=== PATIENT | male | born 1970 | race American Indian/Alaskan Native ===

== ENCOUNTER 2018-06-18 21:22 | Inpatient (IN) | payer MEDICAID, OTHER ==
[2018-06-18 22:10] LABS: BASO % 0.9 % (0.0-2.0); EOS # 0.1 K/uL (0.0-0.7); EOS % 1.5 % (0.0-4.0); HEMOGLOBIN 12.8 g/dL (12.0-18.0); LYMPH # 2.1 K/uL (1.0-4.3); LYMPH % 39.8 % (20.0-40.0); MEAN CELL VOLUME 94.1 fL (80.0-94.0); MEAN CORPUSCULAR HEMOGLOBIN 31.3 pg (27.0-31.0); MEAN CORPUSCULAR HGB CONC 33.3 g/dL (33.0-37.0); MEAN PLATELET VOLUME 7.3 fL (7.2-11.7); MONO # 0.7 K/uL (0.0-0.8); MONO % 12.4 % (0.0-10.0); NEUT # 2.4 K/uL (1.8-7.0); NEUT % 45.4 % (50.0-75.0); NRBC % 0.1 % (0.0-2.0); RBC 4.07 Mil/uL (4.40-5.90); RED CELL DISTRIBUTION WIDTH 16.4 % (11.5-14.5); WHITE BLOOD COUNT 5.3 K/uL (4.8-10.8)
[2018-06-18 22:22] LABS: ALB/GLOB RATIO 1.6 (1.0-2.1); ALBUMIN 4.5 g/dL (3.5-5.0); ALT/SGPT 21 U/L (21-72); AST/SGOT 46 U/L (17-59); BLOOD UREA NITROGEN 15 mg/dL (9-20); CALCIUM 8.8 mg/dl (8.6-10.4); GFR NON-AFRICAN AMERICAN > 60
[2018-06-18 22:40] LABS: SQUAMOUS EPITHIAL 1 /hpf (0-5); URINE AMORPHOUS SEDIMENT RARE /ul (<OCC); URINE BILIRUBIN NEGATIVE (NEGATIVE); URINE BLOOD NEGATIVE (NEGATIVE); URINE CLARITY Hazy (Clear); URINE COLOR Yellow (YELLOW); URINE GLUCOSE (UA) NORMAL (Normal); URINE HYALINE CAST 0-2 /lpf (0-2); URINE LEUKOCYTE ESTERASE NEG Leu/uL (Negative); URINE PROTEIN 2+ mg/dL (NEGATIVE)
[2018-06-18 22:54] LABS: BARBITURATES, UR NEGATIVE (NEGATIVE); BENZODIAZEPINES, UR NEGATIVE (NEGATIVE); OPIATES, UR NEGATIVE (NEGATIVE); PHENCYCLIDINE, UR NEGATIVE (NEGATIVE)
--- NOTE | 2018-06-18 22:59 | C.PDOC ---
History Of Present Illness 47 y/o male is brought in by ambulance and [facility] for alcohol abuse and threatening behavior, seeking detox from alcohol. Patient comes in with handcuffs behind his back. Admits he drank alcohol today, was drinking a pint of vodka when police got to his house. <Mario Burns - Last Filed: 06/19/18 06:47> History Per: Patient, EMS History/Exam Limitations: no limitations Onset/Duration Of Symptoms: Days Current Symptoms Are (Timing): Still Present <Mario Burns - Last Filed: 06/19/18 06:47> <Shaquille Davis V - Last Filed: 06/19/18 09:22> Chief Complaint (Nursing): Psychiatric Evaluation Past Medical History Reviewed: Historical Data, Nursing Documentation, Vital Signs Vital Signs: Last Vital Signs Temp 98.3 F 06/18/18 21:32 Pulse 108 H 06/18/18 21:32 Resp 20 06/18/18 21:32 BP 152/79 H 06/18/18 21:32 Pulse Ox 96 06/18/18 21:32 - Medical History PMH: Denies: Chronic Kidney Disease - [facility] Procedures ALCOHOL DETOXIFICATION (08/09/12) OTHER GROUP THERAPY (08/09/12) Family History: States: No Known Family Hx - Social History Hx Alcohol Use: Yes Hx Substance Use: No - Immunization History Hx Tetanus Toxoid Vaccination: No Hx Influenza Vaccination: No Hx Pneumococcal Vaccination: No <Mario Burns - Last Filed: 06/19/18 06:47> Vital Signs: Last Vital Signs Temp 98.1 F 06/19/18 07:26 Pulse 70 06/19/18 07:26 Resp 18 06/19/18 07:26 BP 120/70 06/19/18 07:26 Pulse Ox 100 06/19/18 07:26 - [facility] Procedures ALCOHOL DETOXIFICATION (08/09/12) OTHER GROUP THERAPY (08/09/12) <Shaquille Davis V - Last Filed: 06/19/18 09:22> Review Of Systems Except As Marked, All Systems Reviewed And Found Negative. Constitutional: Negative for: Fever Gastrointestinal: Negative for: Vomiting Psych: Positive for: Other (alcohol abuse) <Mario Burns - Last Filed: 06/19/18 06:47> Physical Exam - Physical Exam Appears: Non-toxic, No Acute Distress, Other (Bizarre, argumentative, confrontational) Skin: Warm Head: Atraumatic Eye(s): bilateral: Normal Inspection Oral Mucosa: Moist, Other (alcohol on breath) Neck: Supple Cardiovascular: Rhythm Regular, No Murmur Respiratory: Normal Breath Sounds, No Rales, No Rhonchi, No Wheezing Gastrointestinal/Abdominal: Soft, No Tenderness Extremity: Bilateral: Atraumatic Neurological/Psych: Oriented x3, Normal Speech <Mario Burns E - Last Filed: 06/19/18 06:47> ED Course And Treatment - Laboratory Results Result Diagrams: 06/18/18 22:06 06/18/18 22:06 Lab Results: Total Bilirubin 0.4 mg/dL (0.2-1.3) 06/18/18 22:06 AST 46 U/L (17-59) 06/18/18 22:06 ALT 21 U/L (21-72) D 06/18/18 22:06 Alkaline Phosphatase 91 U/L (38-126) 06/18/18 22:06 Total Protein 7.3 g/dL (6.3-8.3) 06/18/18 22:06 Albumin 4.5 g/dL (3.5-5.0) 06/18/18 22:06 Globulin 2.8 gm/dL (2.2-3.9) 06/18/18 22:06 Albumin/Globulin Ratio 1.6 (1.0-2.1) 06/18/18 22:06 Urine Color Yellow (YELLOW) 06/18/18 22:35 Urine Clarity Hazy (Clear) 06/18/18 22:35 Urine pH 7.0 (5.0-8.0) 06/18/18 22:35 Ur Specific [place] 1.016 (1.003-1.030) 06/18/18 22:35 Urine Protein 2+ mg/dL (NEGATIVE) H 06/18/18 22:35 Urine Glucose (UA) Normal mg/dL (Normal) 06/18/18 22:35 Urine Ketones Negative mg/dL (NEGATIVE) 06/18/18 22:35 Urine Blood Negative (NEGATIVE) 06/18/18 22:35 Urine Nitrate Negative (NEGATIVE) 06/18/18 22:35 Urine Bilirubin Negative (NEGATIVE) 06/18/18 22:35 Urine Urobilinogen 4.0 mg/dL (0.2-1.0) 06/18/18 22:35 Ur Leukocyte Esterase Neg Abi/uL (Negative) 06/18/18 22:35 Urine WBC (Auto) 1 /hpf (0-5) 06/18/18 22:35 Urine RBC (Auto) < 1 /hpf (0-3) 06/18/18 22:35 Ur Squamous Epith Cells 1 /hpf (0-5) 06/18/18 22:35 Amorphous Sediment Rare /ul (<OCC) H 06/18/18 22:35 Hyaline Casts 0-2 /lpf (0-2) 06/18/18 22:35 Lab Interpretation: Abnormal (etoh 391 @ 2200) O2 Sat by Pulse Oximetry: 96 (RA) Pulse Ox Interpretation: Normal Reevaluation Time: 06:47 Reassessment Condition: Improved <Mario Burns - Last Filed: 06/19/18 06:47> - Laboratory Results Result Diagrams: 06/18/18 22:06 06/18/18 22:06 Lab Results: Total Bilirubin 0.4 mg/dL (0.2-1.3) 06/18/18 22:06 AST 46 U/L (17-59) 06/18/18 22:06 ALT 21 U/L (21-72) D 06/18/18 22:06 Alkaline Phosphatase 91 U/L (38-126) 06/18/18 22:06 Total Protein 7.3 g/dL (6.3-8.3) 06/18/18 22:06 Albumin 4.5 g/dL (3.5-5.0) 06/18/18 22:06 Globulin 2.8 gm/dL (2.2-3.9) 06/18/18 22:06 Albumin/Globulin Ratio 1.6 (1.0-2.1) 06/18/18 22:06 Urine Color Yellow (YELLOW) 06/18/18 22:35 Urine Clarity Hazy (Clear) 06/18/18 22:35 Urine pH 7.0 (5.0-8.0) 06/18/18 22:35 Ur Specific [place] 1.016 (1.003-1.030) 06/18/18 22:35 Urine Protein 2+ mg/dL (NEGATIVE) H 06/18/18 22:35 Urine Glucose (UA) Normal mg/dL (Normal) 06/18/18 22:35 Urine Ketones Negative mg/dL (NEGATIVE) 06/18/18 22:35 Urine Blood Negative (NEGATIVE) 06/18/18 22:35 Urine Nitrate Negative (NEGATIVE) 06/18/18 22:35 Urine Bilirubin Negative (NEGATIVE) 06/18/18 22:35 Urine Urobilinogen 4.0 mg/dL (0.2-1.0) 06/18/18 22:35 Ur Leukocyte Esterase Neg Abi/uL (Negative) 06/18/18 22:35 Urine WBC (Auto) 1 /hpf (0-5) 06/18/18 22:35 Urine RBC (Auto) < 1 /hpf (0-3) 06/18/18 22:35 Ur Squamous Epith Cells 1 /hpf (0-5) 06/18/18 22:35 Amorphous Sediment Rare /ul (<OCC) H 06/18/18 22:35 Hyaline Casts 0-2 /lpf (0-2) 06/18/18 22:35 <Shaquille Davis V - Last Filed: 06/19/18 09:22> Medical Decision Making Medical Decision Making: Plan: --Labs --UA alcohol abuse pending Detox when sober Mecially cleared for Detox <Mario Burns - Last Filed: 06/19/18 06:47> Disposition - Disposition Disposition Time: 01:00 <Mario Burns - Last Filed: 06/19/18 06:47> Discussed With : Georgia Proctor Doctor Will See Patient In The: Hospital - Disposition Disposition Time: 09:21 <Shaquille Davis V - Last Filed: 06/19/18 09:22> - Disposition Disposition: HOSPITALIZED Condition: STABLE Forms: [facility] ([place]) - Clinical Impression Clinical Impression: Alcohol abuse, Moderate major depression, single episode - Scribe Statement The provider has reviewed the documentation as recorded by the Liza Schulte Provider Attestation: All medical record entries made by the Scribe were at my direction and personally dictated by me. I have reviewed the chart and agree that the record accurately reflects my personal performance of the history, physical exam, medical decision making, and the department course for this patient. I have also personally directed, reviewed, and agree with the discharge instructions and disposition. <Mario Burns E - Last Filed: 06/19/18 06:47> Physician Patient Turnover Patient Signed Over To: Shaquille Davis V <Mario Burns - Last Filed: 06/19/18 06:47>
--- NOTE | 2018-06-19 11:03 | PCM.PSYCH ---
Initial Psychiatric Evaluation - Initial Psychiatric Evaluation Type of Admission: Voluntary Legal Status: Capacity Chief Complaint (in patient's own words): "Alcohol" History of Present Illness and Precipitating Events: The patient is seen, chart reviewed and case discussed. 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 The patient admits to drinking 2 and a half liters of liquor every day. He says he relapsed 4 years ago, but he started drinking 10 years ago. This is a second detox and he has never been to rehab. He had DTs recently but no seizures. He states he became homeless and jailed because of alcohol, and lost relationships. He had increasing Chepe in the emergency room and started with medications. It was around 10. Past psychiatric: Depression but no treatment reported. Currently he feels down but not suicidal now. He claims he was killing himself with alcohol outside. Medical history: Denies major problems Family psych history: Denies Past Psychiatric History - Past Psychiatric History Pertinent Medical Hx (Current Medical&Sleep Prob, Allergies): Allergies Allergy/AdvReac Type Severity Reaction Status Date / Time No Known Allergies Allergy Unverified 08/09/12 22:31 No Known Home Med 06/18/18 Review of Systems - Psychiatric Psychiatric: Abnormal Sleep Pattern, Anhedonia, Anxiety, Change in Appetite, Depression, Difficulty Concentrating. absent: Hallucinations, Homicidal Ideation, Paranoia, Suicidal Ideation Mental Status Examination - Personal Presentation Personal Presentation: Looks older than stated age - Affect Affect: Constricted - Motor Activity Motor Activity: Calm - Reliability in Providing Information Reliability in Providing Information: Good - Speech Speech: Organized - Mood Mood: Depressed, Anxious - Formal Thought Process Formal Thought Process: No Impairment - Cognitive Functions Orientation: Person, Place, Situation, Time Sensorium: Alert Attention/Concentration: Attentive Estimate of Intelligence: Average Judgement: Intact, as evidence by: Insight regarding need for hospitalization Memory: Recent intact, as evidence by: Ability to recall events of the day, Remote intact, as evidenced by: Abilit to recall sig. life events - Risk Risk: Withdrawal, Diminished functioning - Strength & Assets Inventory Strength & Assets Inventory: Cooperative - Limitations Limitations: Other DSM 5 DX - DSM 5 DSM 5 Diagnosis: Alcohol withdrawal Alcohol use d/o - severe Depressive d/o - unspecified - Recommended/Plan of Treatment Treatment Recommendations and Plan of Treatment: Taper with librium Gabapentin for augmentation if needed Monitor depressive sxs As needed medications All risks, benefits and alternatives of the meds discussed, and the pt agreed and understood. Attend groups and activities Supportive therapy and psychoeducation [place] for abstinence CBT for relapse prevention Encourage MAT Refer to rehab or IOP, and self-help groups Teach healthy lifestyle methods, i.e. diet, exercise, meditation Smoking cessation with [place] Nicotine patch if needed 34 min Projected ELOS: 4-5 days Prognosis: good w treatment - Smoking Cessation Smoking Cessation Initiated: Yes
[2018-06-19] MEDS: Multiple Vitamins Tab PO SCH (12:10)
--- NOTE | 2018-06-19 13:38 | PCM.BM ---
<AlexeyLauren cuellar Murphy - Last Filed: 06/19/18 13:36> Treatment Plan Problems - Problems identified on initial assessmt Abnormal vitals Date Initiated: 06/19/18 Time Initiated: 11:00 Assessment reference: NA Status: Active Knowledge Deficit related to Alcohol Date Initiated: 06/19/18 Time Initiated: 11:00 Assessment reference: NA Status: Active Defensive Coping Date Initiated: 06/19/18 Time Initiated: 11:00 Assessment reference: NA Status: Active Treatment assets and liabiliti Patient Assests: ADL independent Patient Liabilities: substance abuse - Milieu Protocol Maintain good personal hygiene: daily Encourage regular showers, daily Remind patient to perform daily oral care, daily Assist patient to perform ADL's Maintain personal safety: every shift Educate patient to report safety concerns to staff, every shift Monitor environment for contraband/sharps Medication safety: Monitor for expected outcome, potential side effects: every shift, Assess barriers to learning: every shift, Assess readiness for medication education: every shift <Georgia Proctor - Last Filed: 06/20/18 13:25> - Diagnosis (1) Alcohol abuse Status: Acute Interventions: 06/20/18 13:25 * Assess 7x/week regarding severity of withdrawal * Educate regarding risks, benefits, side effects and alternatives of medications * Use Motivational Interviewing for abstinence * Use CBT for relapse prevention * Medication management for withdrawal symptoms * Encourage medication assisted treatment * (2) Moderate major depression, single episode Status: Acute Interventions: 06/20/18 13:25 * Assess/adjust medications daily and /or as needed * See patient on an individual basis 7x/week to assess symptoms of depression * Monitor for side effects & effectiveness of medications * <Radha Pizarro - Last Filed: 06/22/18 11:33> Family Contact Family involvement: Famliy/SO not involved - Goals for Treatment Patient goals for treatment: Complete detox and transition to an [facility] in [place]. Discharge/Continuing Care - Education Needs Education Needs: Patient Medication, Patient Diagnosis/Disease Process, Patient Coping Skills, Patient Anger Management skills, Patient Placement options, Patient Community resources - Discharge Discharge Criteria: No longer exhibiting s/s of withdrawal, Reduction of target symptoms Discharge to:: With Family - Treatment Team Participation Patient/Family/SO Statement: 06/22/18 11:32 "I'm gonna move to [place] where my family is. I already have a bus ticket. I'll go to a program there..." Discussed with Family/SO: No Was Patient/Family/SO present at Treatment Team Meeting: Yes
[2018-06-20] MEDS: Multiple Vitamins Tab PO SCH (09:57)
--- NOTE | 2018-06-20 12:38 | PCM.PYCHPN ---
Psychiatric Progress Note - Psychiatric Progress Note Patient seen today, length of contact: 16 min Patient Chief Complaint: "Better" Problems Identified/Issues Discussed: The pt is seen, chart reviewed, case discussed with staff. The pt is compliant with medications and reports no side-effects. Symptoms are improving but needs more time to stabilize. Pt attends groups and activities. Support given, psycho-education provided. After care discussed. He says he will go to [place] directly when he leaves. Medication Change: Yes (detox changes daily) Medical Record Reviewed: Yes Mental Status Examination - Cognitive Function Orientation: Person, Place, Situation, Time Memory: Intact Attention: WNL Concentration: Poor Association: WNL Fund of Knowledge: WNL - Mood Mood: Depressed, Anxious - Affect Affect: Constricted - Speech Speech: Appropriate - Formal Thought Process Formal Thought Process: No Impairment - Suicidal Ideation Suicidal Ideation: No - Homicidal Ideation Homicidal Ideation: No Goal/Treatment Plan - Goal/Treatment Plan Need for Continued Stay: Discharge may exacerbated symptoms, Severe functional impairment Progress Toward Problem(s) and Goals/Treatment Plan: Taper with librium Gabapentin for augmentation if needed Monitor depressive sxs As needed medications All risks, benefits and alternatives of the meds discussed, and the pt agreed and understood. Attend groups and activities Supportive therapy and psychoeducation [place] for abstinence CBT for relapse prevention Encourage MAT Refer to rehab or IOP, and self-help groups Teach healthy lifestyle methods, i.e. diet, exercise, meditation Smoking cessation with [place] Nicotine patch if needed
[2018-06-21] MEDS: Multiple Vitamins Tab PO SCH (09:52)
--- NOTE | 2018-06-21 13:23 | PCM.PYCHPN ---
Psychiatric Progress Note - Psychiatric Progress Note Patient seen today, length of contact: 17 min Patient Chief Complaint: "OK today" Problems Identified/Issues Discussed: The pt is seen, chart reviewed, case discussed with staff. Support and psychoeducation given, CBT and [place] used briefly Pt is improving slowly and needs more time, still has ongoing symptoms. No SEs from medications, risks discussed. After care discussed Medication Change: Yes (detox changes daily) Medical Record Reviewed: Yes Mental Status Examination - Cognitive Function Orientation: Person, Place, Situation, Time Memory: Intact Attention: WNL Concentration: Poor Association: WNL Fund of Knowledge: WNL - Mood Mood: Depressed, Anxious - Affect Affect: Constricted - Speech Speech: Appropriate - Formal Thought Process Formal Thought Process: No Impairment - Suicidal Ideation Suicidal Ideation: No - Homicidal Ideation Homicidal Ideation: No Goal/Treatment Plan - Goal/Treatment Plan Need for Continued Stay: Discharge may exacerbated symptoms, Severe functional impairment Progress Toward Problem(s) and Goals/Treatment Plan: Taper with librium Gabapentin for augmentation if needed Monitor depressive sxs As needed medications All risks, benefits and alternatives of the meds discussed, and the pt agreed and understood. Attend groups and activities Supportive therapy and psychoeducation [place] for abstinence CBT for relapse prevention Encourage MAT Refer to rehab or IOP, and self-help groups Teach healthy lifestyle methods, i.e. diet, exercise, meditation Smoking cessation with [place] Nicotine patch if needed
[2018-06-22] MEDS: Multiple Vitamins Tab PO SCH (09:25)
--- NOTE | 2018-06-22 12:13 | PCM.PYCHPN ---
Psychiatric Progress Note - Psychiatric Progress Note Patient seen today, length of contact: 15 min Patient Chief Complaint: "Anxious" Problems Identified/Issues Discussed: The pt is seen, chart reviewed, case discussed with staff. Improving Has less wdw sxs Detox will end tomorrow AM No SEs or issues Support given, [place] used. Medication Change: Yes (detox changes daily) Medical Record Reviewed: Yes Mental Status Examination - Cognitive Function Orientation: Person, Place, Situation, Time Memory: Intact Attention: WNL Concentration: Poor Association: WNL Fund of Knowledge: WNL - Mood Mood: Depressed, Anxious - Affect Affect: Constricted - Speech Speech: Appropriate - Formal Thought Process Formal Thought Process: No Impairment - Suicidal Ideation Suicidal Ideation: No - Homicidal Ideation Homicidal Ideation: No Goal/Treatment Plan - Goal/Treatment Plan Need for Continued Stay: Discharge may exacerbated symptoms, Severe functional impairment Progress Toward Problem(s) and Goals/Treatment Plan: Taper with librium Gabapentin for augmentation if needed Monitor depressive sxs As needed medications All risks, benefits and alternatives of the meds discussed, and the pt agreed and understood. Attend groups and activities Supportive therapy and psychoeducation [place] for abstinence CBT for relapse prevention Encourage MAT Refer to rehab or IOP, and self-help groups Teach healthy lifestyle methods, i.e. diet, exercise, meditation Smoking cessation with [place] Nicotine patch if needed
[2018-06-22 17:06] VITALS: O2SAT 99
--- NOTE | 2018-06-23 08:50 | PCM.PYCHDC ---
Mental Status Examination - Mental Status Examination Orientation: Person Discharge Summary - Discharge Note Consultations:: List each consultation separately and include: 1. Reason for request. 2. Findings. 3. Follow-up Summary of Hospital Course include:: 1. Description of specific treatment plan utilized for patients during their course of treatmen. 2. Summarize the time- course for resolution of acute symptoms and/or regressed behaviors. 3. Describe issues identified and worked on during hospitalization. 4. Describe medication utilized. 5. Describe medical problems identified and treated. 6. Reassessment of suicide risk Summary of Hospital Course: The patient is seen, chart reviewed and case discussed. 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 The patient admits to drinking 2 and a half liters of liquor every day. He says he relapsed 4 years ago, but he started drinking 10 years ago. This is a second detox and he has never been to rehab. He had DTs recently but no seizures. He states he became homeless and jailed because of alcohol, and lost relationships. He had increasing Chepe in the emergency room and started with medications. It was around 10. Past psychiatric: Depression but no treatment reported. Currently he feels down but not suicidal now. He claims he was killing himself with alcohol outside. Medical history: Denies major problems Family psych history: Denies He will move to [place] tomorrow and attend AA and look for an IOP. - Diagnosis (1) Alcohol abuse Current Visit: Yes Status: Acute (2) Moderate major depression, single episode Current Visit: Yes Status: Acute - Final Diagnosis (DSM 5) Condition upon Discharge: STABLE Disposition: HOME/ ROUTINE Follow-up Treatment Plan: Taper with librium Gabapentin for augmentation if needed Monitor depressive sxs As needed medications All risks, benefits and alternatives of the meds discussed, and the pt agreed and understood. Attend groups and activities Supportive therapy and psychoeducation [place] for abstinence CBT for relapse prevention Encourage MAT Refer to rehab or IOP, and self-help groups Teach healthy lifestyle methods, i.e. diet, exercise, meditation Smoking cessation with [place] Nicotine patch if needed Prescriptions/Medication Reconciliation: Multivitamins [Hexavitamin] 1 tab PO DAILY #30 tab Nicotine 21 mg/24 hr [Nicoderm Cq] 1 patch TD DAILY #30 patch traZODone [Desyrel] 50 mg PO HS PRN #30 tab PRN Reason: Insomnia
[2018-06-23] MEDS: Multiple Vitamins Tab PO SCH (09:34)
[2018-06-23 09:53] VITALS: BP 128/84; PULSE 69; RESP 18; TEMP 97.6
== END 2018-06-23 10:20 | disposition home or self-care (01) | DRG 751 ==
LOC: C.ER 21:22 → C.7D 06-19 09:22
PROVIDERS: ADMIT Psychiatry & Neurology Psychiatry; ATTEND Psychiatry & Neurology Psychiatry
PROC: HZ2ZZZZ Detoxification Services for Substance Abuse Treatment (ICD-10-PCS; principal; 2018-06-19)
PROC: GZ3ZZZZ Medication Management (ICD-10-PCS; 2018-06-19)
PROC: HZ80ZZZ Medication Management for Substance Abuse Treatment, Nicotine Replacement (ICD-10-PCS; 2018-06-19)
PROC: HZ59ZZZ Individual Psychotherapy for Substance Abuse Treatment, Supportive (ICD-10-PCS; 2018-06-19)
PROC: HZ46ZZZ Group Counseling for Substance Abuse Treatment, Psychoeducation (ICD-10-PCS; 2018-06-19)
DX: F10.230 Alcohol dependence with withdrawal, uncomplicated (principal); F32.1 Major depressive disorder, single episode, moderate; F17.210 Nicotine dependence, cigarettes, uncomplicated; Y90.8 Blood alcohol level of 240 mg/100 ml or more; Z59.0 Homelessness